=== PATIENT | male | born 1970 | race Caucasian/White ===

== ENCOUNTER → 2019-07-29 | Day surgery (SDC) | payer BC ==
[~2019-07-29] MED LIST: IV RINGERS,LACTATED 1000ML 1,000 ML IV SCH; LIDOCAINE 2% PF 5 ML VIAL. ONE; PROPOFOL 20 ML IV ONE
[2019-07-29 17:10] VITALS: BP 134/74
--- NOTE | 2019-07-31 13:07 | PATHOLOGY ---
[facility] Accession Number: [id number] . 01 Material submitted: . stomach - GASTRIC ULCER BIOPSY . 01 Clinical history: . Abdominal pain . 02 Diagnosis: Gastric biopsies, gastric ulcer: - Superficial congestion and mild chronic inflammation with focal erosion and slight acute inflammation. (JPM:[facility] 07/31/2019) [facility] 07/31/2019 0922 Local . 02 Comment: Sections of the gastric ulcer biopsy reveal segments of gastric body mucosa showing superficial congestion and mild chronic inflammation. One of the biopsy segments shows focal superficial erosion and slight acute inflammation. A properly controlled immunoperoxidase for Helicobacter is negative for Helicobacter pylori organisms. There is no evidence of malignancy. (JPM:[facility] 07/31/2019) . Special stain performed: Immunoperoxidase for Helicobacter . 02 Electronically signed: . Chacho Bee MD, Pathologist NPI- [id number] . 01 Gross description: . Received in formalin labeled "Yong Canales, gastric ulcer BX," are 3 segments of chaudhry soft tissue measuring 1.0 x 0.9 x 0.3 cm in aggregate dimensions and ranging from 0.4 to 0.5 cm in maximum dimension. The specimen is submitted entirely in cassette A1. (TSD; 07/30/2019) TOB/TOB 07/30/2019 1728 Local . 02 Pathologist provided ICD-10: K29.50 . 02 CPT . 668345, [id number] Specimen Comment: A courtesy copy of this report has been sent to [phone], [phone] Specimen Comment: [id number] Specimen Comment: Report sent to and Performed at: 01 [facility] [address] [place] [address] [id number] MD Benji Cook MD Phone: [phone] Performed at: [address] [id number] MD Chacho Bee MD Phone: [phone]
== END ==
LOC: ENDOS 15:52
PROVIDERS: ATTEND Internal Medicine Gastroenterology
DX: R12 Heartburn (principal); K29.50 Unspecified chronic gastritis without bleeding; K25.9 Gastric ulcer, unspecified as acute or chronic, without hemorrhage or perforation; F15.90 Other stimulant use, unspecified, uncomplicated; Z87.891 Personal history of nicotine dependence
CPT/HCPCS: 43239; J2001; J2704; 88305; 88342

== ENCOUNTER → 2019-10-23 | Day surgery (SDC) | payer BC ==
[~2019-10-23] MED LIST changes: +HYDROmorphone 2 MG/ML VIAL IV PRN; +MORPHINE SULFATE 2 MG/ML VIAL. IV PRN; +ONDANSETRON PF 4 MG/2 ML VIAL. IV PRN; +PROCHLORPERAZINE 10 MG/2 ML VIAL. IV PRN; +fentaNYL PF VIAL 100 MCG/2 ML VIAL IV PRN
[2019-10-23 13:59] VITALS: BP 110/76
== END ==
LOC: ENDOS 12:23
PROVIDERS: ATTEND Internal Medicine Gastroenterology
DX: K25.7 Chronic gastric ulcer without hemorrhage or perforation (principal); K29.50 Unspecified chronic gastritis without bleeding; K21.9 Gastro-esophageal reflux disease without esophagitis; F15.90 Other stimulant use, unspecified, uncomplicated
CPT/HCPCS: 43235; J2001; J2704